=== PATIENT | male | born 2000 | race Hispanic/Latino ===

== ENCOUNTER 2022-07-15 20:23 | Emergency (ER) | payer OTHER ==
[~2022-07-15] VITALS: Ht 175.3 cm; Wt 60.8 kg
[2022-07-15] MEDS ORDERED: MELOXICAM7.5 MG PO (22:20)
[2022-07-15 22:26] VITALS: BP 131/67
== END 2022-07-15 22:30 | disposition home or self-care (01) ==
LOC: EDSEX 20:31 → FSED 20:31
DX: S40.022A Contusion of left upper arm, initial encounter (principal); V43.52XA Car driver injured in collision with other type car in traffic accident, initial encounter; Y92.488 Other paved roadways as the place of occurrence of the external cause
CPT/HCPCS: 99282